=== PATIENT | female | born 2005 | race Caucasian/White ===

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

== ENCOUNTER → 2024-06-06 11:40 | Outpatient (CLI) | payer OTHER, MEDICAID, SELFPAY ==
[2024-06-06 12:22] LABS: Hematocrit 40.8 % (36-46); Hemoglobin 13.7 g/dL (12.0-16.0); Mean Corpuscular HGB Conc 33.6 % (30-36); Mean Corpuscular Hemoglobin 28.9 PG (26-34); Platelet Count 309 X10^3/uL (150-400); Red Blood Cell Count 4.74 X10^6/uL (4.0-5.2); Red Cell Distribution Width 13.4 % (11.6-14.8); White Blood Cell Count 8.7 X10^3/uL (4.5-11.0)
[2024-06-06 12:52] LABS: HEMOLYSIS 18 (0-50); Iron 128 ug/dL (37-170)
[2024-06-06 13:00] LABS: Alanine Aminotransferase 19 IU/L (<35); Albumin 4.6 g/dL (3.5-5.0); Albumin Globulin Ratio 1.7 (1.0-2.8); Alkaline Phosphatase 59 U/L (38-126); Aspartate Aminotransferase 22 IU/L (14-36); BUN Creatinine Ratio 19.4 (6-22); Bilirubin Total 0.4 mg/dL (0.2-1.3); Blood Urea Nitrogen 12 mg/dL (7-17); Calcium 9.6 mg/dL (8.4-10.2); Carbon Dioxide 26 mmol/L (22-32); Chloride 104 mmol/L (98-107); Cholesterol 159 mg/dL (140-199); Estimated Glomerular Filt Rate > 60 mL/min (>60); Globulin 2.7 g/dL (1.7-4.1); Glucose 96 mg/dL (70-100); HDL Cholesterol 53 mg/dL (40-60); HEMOLYSIS < 15 (0-50); LDL Cholesterol Calculated 75 mg/dL (<100); Potassium 4.4 mmol/L (3.4-5.1); Sodium 138 mmol/L (137-145); Total Protein 7.3 g/dL (6.3-8.2); Triglycerides 155 mg/dL (35-150)
[2024-06-06 13:03] LABS: Percent Iron Saturation 44 % (15-50); Total Iron Binding Capacity 291 ug/dL (265-497); Transferrin 256 mg/dL (206-381)
[2024-06-06 13:26] LABS: TSH w/ Reflex to FT4 1.71 uIU/mL (0.47-4.68)
[2024-06-06 13:34] LABS: Ferritin 56 ng/mL (6-137)
[2024-06-06 13:46] LABS: Vitamin B12 412 pg/mL (239-931)
== END ==
PROVIDERS: Family Provider Pediatrics; PCP Family Medicine; Referring Provider Family Medicine; Visit Provider Family Medicine
DX: Z13.220 Encounter for screening for lipoid disorders (principal); R20.2 Paresthesia of skin; Z83.49 Family history of other endocrine, nutritional and metabolic diseases
CPT/HCPCS: 36415; 80053; 80061; 82607; 82728; 83540; 83550; 84443; 85027

== ENCOUNTER → 2024-07-01 14:20 | Outpatient (CLI) | payer OTHER, SELFPAY ==
[2024-07-01 15:09] LABS: Add Manual Diff / Slide Review NO; Basophils Absolute Auto 0 /uL (0-100); Basophils Percent Auto 0.5 % (0-2); Eosinophils Absolute Auto 100 /uL (0-450); Eosinophils Percent Auto 0.6 % (2-4); Hematocrit 40.7 % (36-46); Hemoglobin 13.6 g/dL (12.0-16.0); Lymphocytes Absolute Auto 3200 /uL (1100-4500); Lymphocytes Percent Auto 30.8 % (25-40); Mean Corpuscular HGB Conc 33.3 % (30-36); Mean Corpuscular Hemoglobin 28.2 PG (26-34); Mean Corpuscular Volume 84.5 fL (80-100); Monocytes Absolute Auto 400 /uL (0-900); Monocytes Percent Auto 3.8 % (3-14); Neutrophils Absolute Auto 6600 /uL (1500-7000); Neutrophils Percent Auto 64.3 % (50-75); Platelet Count 340 X10^3/uL (150-400); Red Blood Cell Count 4.82 X10^6/uL (4.0-5.2); Red Cell Distribution Width 13.6 % (11.6-14.8); White Blood Cell Count 10.2 X10^3/uL (4.5-11.0)
[2024-07-01 15:38] LABS: Pregnancy Test Serum,Qual Negative (Negative)
[2024-07-01 15:43] LABS: Alanine Aminotransferase 33 IU/L (<35); Albumin 4.8 g/dL (3.5-5.0); Albumin Globulin Ratio 1.8 (1.0-2.8); Alkaline Phosphatase 57 U/L (38-126); Aspartate Aminotransferase 24 IU/L (14-36); BUN Creatinine Ratio 23.3 (6-22); Bilirubin Total 0.3 mg/dL (0.2-1.3); Blood Urea Nitrogen 14 mg/dL (7-17); Carbon Dioxide 24 mmol/L (22-32); Chloride 104 mmol/L (98-107); Cholesterol 189 mg/dL (140-199); Estimated Glomerular Filt Rate > 60 mL/min (>60); Globulin 2.7 g/dL (1.7-4.1); Glucose 139 mg/dL (70-100); HDL Cholesterol 55 mg/dL (40-60); HEMOLYSIS < 15 (0-50); LDL Cholesterol Calculated 102 mg/dL (<100); Potassium 5.3 mmol/L (3.4-5.1); Sodium 138 mmol/L (137-145); Total Protein 7.5 g/dL (6.3-8.2); Triglycerides 159 mg/dL (35-150)
== END ==
PROVIDERS: Family Provider Pediatrics; PCP Family Medicine; Referring Provider Nurse Practitioner; Visit Provider Nurse Practitioner
DX: L70.0 Acne vulgaris (principal); Z79.899 Other long term (current) drug therapy
CPT/HCPCS: 36415; 80053; 80061; 84703; 85025

== ENCOUNTER → 2024-12-13 17:31 | Outpatient (CLI) | payer OTHER, SELFPAY ==
--- NOTE | 2024-12-13 17:33 | DI.RAD.S_ITS ---
PROCEDURE: XR PELVIS 1-2V INDICATIONS: assess mid back pain TECHNIQUE: 1 view(s) of the pelvis acquired. COMPARISON: None. FINDINGS AND IMPRESSION: Single view of the pelvis, without displaced fracture or dislocation. No significant degenerative changes. If there is high concern for further derangement, consider MRI evaluation. Dictated by: Constantine Layton M.D. on 12/14/2024 at 7:26 Approved by: Constantine Layton M.D. on 12/14/2024 at 7:26
--- NOTE | 2024-12-13 17:33 | DI.RAD.S_ITS ---
PROCEDURE: XR LUMBAR SPINE 2-3V INDICATIONS: assess mid back pain TECHNIQUE: 3 views of the lumbar spine were acquired. COMPARISON: None. FINDINGS AND IMPRESSION: There is mild rightward spinal curvature in the lower lumbar spine. Vertebral body heights are well maintained. No traumatic subluxation. The lower most lumbar type vertebral body is labeled L5. The T12 ribs are probably hypoplastic. Mild L5-S1 disc space height loss. Moderate to large fecal loading. If there is high concern for further derangement, consider MRI evaluation. Dictated by: Constantine Layton M.D. on 12/14/2024 at 7:22 Approved by: Constantine Layton M.D. on 12/14/2024 at 7:25
--- NOTE | 2024-12-13 17:33 | DI.RAD.S_ITS ---
PROCEDURE: XR THORACIC SPINE 2V INDICATIONS: assess mid + low back pain TECHNIQUE: 3 views of the thoracic spine were acquired. COMPARISON: None. FINDINGS AND IMPRESSION: No significant spondylosis of the thoracic spine. No acute fracture or traumatic subluxation is seen. No suspicious soft tissue calcifications. If there is high concern for further derangement, consider MRI evaluation. Dictated by: Constantine Layton M.D. on 12/14/2024 at 7:21 Approved by: Constantine Layton M.D. on 12/14/2024 at 7:22
== END ==
LOC: RAD 17:33
PROVIDERS: Family Provider Pediatrics; PCP Family Medicine; Referring Provider Family Medicine; Visit Provider Family Medicine
DX: M43.8X6 Other specified deforming dorsopathies, lumbar region (principal); M54.9 Dorsalgia, unspecified
CPT/HCPCS: 72070; 72100; 72170